=== PATIENT | male | born 1940 | race Caucasian/White ===

== ENCOUNTER 2017-03-02 12:22 | Emergency (ER) | payer MEDICARE ==
[~2017-03-02] VITALS: Ht 177.8 cm
[2017-03-02] MEDS ORDERED: LISINOPRIL20 MG PO (12:32)
[2017-03-02] MEDS ORDERED: MECLIZINE HCL25 M2 PO (12:33)
[2017-03-02] MEDS ORDERED: Lopressor25 MG PO (12:34)
[2017-03-02] MEDS ORDERED: RANITIDINE HYD300 MG PO (12:34)
[2017-03-02] MEDS ORDERED: TAMSULOSIN HCL0.4 MG PO (12:35)
[2017-03-02] MEDS ORDERED: JENTADUETO 2.51 EACH PO (12:35)
[2017-03-02] MEDS ORDERED: SIMVASTATIN40 MG PO (12:35)
[2017-03-02 12:59] LABS: BILIRUBIN NEGATIVE (NEGATIVE); BLOOD NEGATIVE (NEGATIVE); CLARITY SL CLOUDY (CLEAR); COLOR YELLOW (YELLOW); GLUCOSE NEGATIVE (NEGATIVE); KETONE NEGATIVE (NEGATIVE); LEUKO ESTERASE NEGATIVE (NEGATIVE); NITRITE NEGATIVE (NEGATIVE); PH 5.5 (5.0-9.0); PROTEIN NEGATIVE (NEGATIVE); UROBILINOGEN 0.2 E.U./dl (0.2-1.0)
[2017-03-02 13:10] LABS: MUCOUS 1+; URINE REFLEX COMMENT NO (NO); WBC 0-2 wbc/hpf (0-5)
[2017-03-02] MEDS ORDERED: NORCO 5-325 TA1 EACH PO (13:54)
== END 2017-03-02 13:58 | disposition home or self-care (01) ==
LOC: ED 12:22
PROVIDERS: Nurse Practitioner Family
DX: G89.29 Other chronic pain (principal); M54.5 Low back pain; Z95.1 Presence of aortocoronary bypass graft; Z79.899 Other long term (current) drug therapy; Z88.0 Allergy status to penicillin

== ENCOUNTER 2017-03-03 16:33 | Emergency (ER) | payer MEDICARE ==
[~2017-03-03] VITALS: Ht 177.8 cm; Wt 90.7 kg
[~2017-03-03 16:33] MED LIST: JENTADUETO 2.51 EACH PO; LISINOPRIL20 MG PO; Lopressor25 MG PO; MECLIZINE HCL25 M2 PO; NORCO 5-325 TA1 EACH PO; RANITIDINE HYD300 MG PO; SIMVASTATIN40 MG PO; TAMSULOSIN HCL0.4 MG PO
[2017-03-03 18:34] LABS: BASO % 0.5 % (0.0-1.0); EOS # 0.1 10*3/uL (0.0-0.4); EOS % 0.8 % (1.0-4.0); HEMATOCRIT 43.7 % (42.0-52.0); LYMPH # 1.8 10*3/uL (1.3-4.4); LYMPH % 30.4 % (27.0-41.0); MEAN CELL VOLUME 87.1 fl (80.0-94.0); MEAN CORPUSCULAR HGB 29.9 pg (27.0-31.0); MEAN CORPUSCULAR HGB CONC 34.3 g/dl (33.0-37.0); MEAN PLATELET VOLUME 10.4 fl (9.6-12.3); MONO # 0.5 10*3/uL (0.1-1.0); MONO % 8.5 % (3.0-9.0); NEUT # 3.5 10*3/uL (2.3-7.9); NEUT % 59.3 % (47.0-73.0); PLATELET COUNT AUTOMATED 168 10*3/uL (130-400); RED BLOOD COUNT 5.02 10*6/uL (4.50-5.90); RED CELL DISTRI WIDTH 12.4 % (0-14.5); WHITE BLOOD COUNT 5.9 10*3/uL (4.8-10.8)
[2017-03-03 18:43] LABS: PROTHROMBIN TIME 10.1 SECONDS (9.0-12.4)
[2017-03-03 18:49] LABS: ALBUMIN 3.7 gm/dl (3.1-4.5); ALKALINE PHOSPHATASE 73 U/L (45-117); BILIRUBIN, TOTAL 0.4 mg/dl (0.2-1.0); BUN 20 mg/dl (7-24); CARBON DIOXIDE 22 mmol/L (21-32); CHLORIDE 111 mmol/L (98-107); CPK 78 U/L (39-308); EST GLOM FILT AFRICAN AMERICAN > 60 ml/min; GLUCOSE 138 mg/dL (65-99); POTASSIUM 4.7 mmol/L (3.5-5.1); SGOT/AST 17 IU/L (3-35); SGPT/ALT 25 U/L (12-78); SODIUM 139 mmol/L (136-145)
[2017-03-03 18:50] LABS: CKMB 2.1 ng/ml (0.5-3.6)
[2017-03-03 18:51] LABS: TROPONIN I < 0.015 ng/ml (<0.045)
== END 2017-03-03 21:07 | disposition home or self-care (01) ==
LOC: ED 16:33
PROVIDERS: Registered Nurse
DX: R42 Dizziness and giddiness (principal); Z88.0 Allergy status to penicillin; Z95.1 Presence of aortocoronary bypass graft; Z79.899 Other long term (current) drug therapy